=== PATIENT | female | born 1970 ===

== ENCOUNTER 2020-04-27 10:00 | Inpatient (IN) | payer OTHER ==
[~2020-04-27] VITALS: Ht 162.6 cm; Wt 77.1 kg
[2020-04-27] MEDS ORDERED: SYNTHROID150 MCG PO (14:12)
[2020-05-05] MEDS ORDERED: DOCUSATE SODIU100 MG PO (07:40)
[2020-05-05] MEDS ORDERED: CODE1TAB37 PO (07:40)
== END 2020-05-05 08:40 | disposition home or self-care (01) | DRG 743 ==
LOC: O/R 05-03 05:50 → OB/GYN 05-03 05:50 → O/R 05-03 10:00 → OB/GYN 05-03 13:55
PROVIDERS: ADMIT Obstetrics & Gynecology; ATTEND Obstetrics & Gynecology
PROC: 0UQF4ZZ Repair Cul-de-sac, Percutaneous Endoscopic Approach (ICD-10-PCS; 2020-05-03)
PROC: 0USG4ZZ Reposition Vagina, Percutaneous Endoscopic Approach (ICD-10-PCS; 2020-05-03)
PROC: 0UT9FZZ Resection of Uterus, Via Natural or Artificial Opening With Percutaneous Endoscopic Assistance (ICD-10-PCS; principal; 2020-05-03 14:15)
DX: D25.1 Intramural leiomyoma of uterus (principal); D25.0 Submucous leiomyoma of uterus; N92.1 Excessive and frequent menstruation with irregular cycle; N72 Inflammatory disease of cervix uteri; N81.5 Vaginal enterocele